=== PATIENT | male | born 1995 | race Asian ===

== ENCOUNTER 2024-05-16 12:44 | Emergency (ER) | payer OTHER ==
[~2024-05-16] VITALS: Ht 170.2 cm; Wt 75.9 kg
[2024-05-16 13:52] VITALS: BP 121/84; PULSE 65; RESP 16; TEMP 98.2; O2SAT 98
== END 2024-05-16 13:55 | disposition home or self-care (01) ==
LOC: ER 12:44
DX: R07.81 Pleurodynia (principal)
CPT/HCPCS: 71045; 99283